=== PATIENT | female | born 1980 | race Asian ===

== ENCOUNTER 2017-06-12 20:29 | Emergency (ER) | payer MEDICAID ==
[~2017-06-12] VITALS: Ht 160 cm; Wt 54.0 kg
[2017-06-12 21:02] VITALS: Ht 160 cm; Wt 54.0 kg
[2017-06-12 22:15] VITALS: BP 94/59
== END 2017-06-12 22:16 | disposition home or self-care (01) ==
LOC: ED 20:29
DX: L23.9 Allergic contact dermatitis, unspecified cause (principal); Z88.0 Allergy status to penicillin; Z88.1 Allergy status to other antibiotic agents
CPT/HCPCS: J1100

== ENCOUNTER 2019-04-16 03:34 | Emergency (ER) | payer MEDICAID ==
[~2019-04-16] VITALS: Ht 160 cm; Wt 58.1 kg
[2019-04-16 03:42] VITALS: Ht 160 cm; Wt 58.1 kg
[2019-04-16 05:52] VITALS: BP 93/58
== END 2019-04-16 05:52 | disposition home or self-care (01) ==
LOC: ED 03:34
DX: R05 Cough (principal); R07.89 Other chest pain; R50.9 Fever, unspecified; Z88.0 Allergy status to penicillin; Z88.1 Allergy status to other antibiotic agents

== ENCOUNTER 2019-09-26 20:43 | Emergency (ER) | payer MEDICAID ==
[~2019-09-26] VITALS: Ht 160 cm; Wt 61.0 kg
[2019-09-26 20:48] VITALS: Ht 160 cm; Wt 61.0 kg
[2019-09-26 23:56] VITALS: BP 94/61
== END 2019-09-26 23:56 | disposition home or self-care (01) ==
LOC: ED 20:43
DX: T78.3XXA Angioneurotic edema, initial encounter (principal); Z88.0 Allergy status to penicillin
CPT/HCPCS: J0171; J1200; J7512